=== PATIENT | male | born 1945 | race Caucasian/White ===

== ENCOUNTER → 2019-05-04 14:31 | Outpatient (BNVA) | payer MEDICARE, SELFPAY | PROVIDERS: Family Provider Nurse Practitioner; PCP Nurse Practitioner; Visit Provider Family Medicine | DX: J18.9 Pneumonia, unspecified organism (principal) | CPT/HCPCS: 71046 ==

== ENCOUNTER 2023-06-08 10:22 | Outpatient (CLI) | payer MEDICARE, SELFPAY ==
--- NOTE | 2023-06-08 10:35 | XRR_ITS ---
PROCEDURE INFORMATION: Exam: XR Chest Exam date and time: 06/08/2023 10:42 AM Age: 77 years old Clinical indication: Cough; Additional info: Uveitis, right TECHNIQUE: Imaging protocol: Radiologic exam of the chest. Views: 2 views. COMPARISON: CR XR chest 2V* [id number] 05/04/2019 2:35 PM FINDINGS: Lungs: Unremarkable. No consolidation. Pleural spaces: Unremarkable. No pleural effusion. No pneumothorax. Heart/Mediastinum: Unremarkable. No cardiomegaly. Bones/joints: Unremarkable. XR/XR chest 2V* [id number] IMPRESSION: No acute findings.
[2023-06-08 11:03] LABS: Basophils # 0.1 10^3/uL (0.0-0.1); Basophils % 0.7 %; Eosinophils # 0.1 10^3/uL (0.0-0.8); Eosinophils % 1.6 %; Hematocrit 40.7 % (37-53); Lymphocytes # 2.5 10^3/uL (0.8-4.8); Lymphocytes % 32.4 %; Mean Corpuscular HGB Conc 34.6 g/dL (30-55); Mean Corpuscular Hemoglobin 34.3 pg (27-33); Mean Platelet Volume 9.2 fL (7.4-10.4); Monocytes # 0.7 10^3/uL (0.2-0.9); Monocytes % 8.7 %; Neutrophils # 4.34 10^3/uL (1.8-7.7); Neutrophils % 56.3 %; Nucleated Red Blood Cells % 0 %; Platelet Count 159 10^3/cmm (157-399); Red Blood Count 4.11 10^6/uL (3.85-5.65); Red Cell Distribution Width 12.6 % (12.1-15.1); White Blood Count 7.69 10^3/uL (3.29-11.43)
[2023-06-08 11:05] LABS: Erythrocyte Sedimentation Rate 5 mm/hr (0-10)
[2023-06-08 11:32] LABS: Rapid Plasma Reagin Syphilis Nonreactive (Nonreactive)
[2023-06-09 11:59] LABS: Angiotensin Converting Enzyme 14 U/L (9-67)
[2023-06-09 14:10] LABS: Lymes IGG WB <0.90 index
[2023-06-11 11:39] LABS: Quantiferon Mitogen >10.00 IU/mL; Quantiferon Nil 0.04 IU/mL; Quantiferon Plus TB1 <0.00 IU/mL; Quantiferon TB Gold NEGATIVE (NEGATIVE)
[2023-06-12 22:44] LABS: Treponema pallidum Ab NON-REACTIVE
== END 2023-06-08 10:23 | disposition home or self-care (01) ==
LOC: LAB 10:29
PROVIDERS: PCP Nurse Practitioner; Visit Provider Ophthalmology
DX: H20.9 Unspecified iridocyclitis (principal)
CPT/HCPCS: 36415; 71046; 82164; 85025; 85651; 86140; 86480; 86592; 86617; 86780

== ENCOUNTER 2023-09-09 10:10 | Outpatient (CLI) | payer MEDICARE, SELFPAY ==
[2023-09-14 21:39] LABS: Bartonella Henselae IgG AB NEGATIVE; Bartonella Henselae IgM AB NEGATIVE; Bartonella Quintana IgG AB NEGATIVE
[2023-09-30 10:05] LABS: Bartonella Quintana IgM AB NEGATIVE
== END 2023-09-09 10:11 | disposition home or self-care (01) ==
LOC: LAB 10:32
PROVIDERS: PCP Nurse Practitioner; Visit Provider Ophthalmology
DX: H20.9 Unspecified iridocyclitis (principal)
CPT/HCPCS: 36415; 86611

== ENCOUNTER 2023-10-07 11:29 | Outpatient (CLI) | payer MEDICARE, SELFPAY ==
--- NOTE | 2023-10-07 11:36 | MR_ITS ---
WS: [id number] MRI HEAD AND ORBITS WITH CONTRAST TECHNIQUE: Noncontrast axial T1, axial T2 FSE fat sat, coronal T2 fat sat, coronal T1, coronal T1 fat sat, sagittal T2 fat sat, plus contrast enhanced coronal, sagittal, and axial T1 fat sat images obta ined. Post gadolinium images obtained of the orbits with fat saturation technique. High-resolution or bital imaging. CLINICAL INFORMATION: ?PVRL COMPARISON: None. FINDINGS: No evidence of restricted diffusion to suggest acute ischemia. Ventricular system and basal cistern s are patent. Mild small vessel changes. Moderate parenchymal volume loss. Normal posterior fossa. No rmal vascular flow voids at the skull base. Small basilar artery flow void. Mild mucosal thickening t he paranasal sinuses. Mastoid air cells are well aerated. Normal posterior nasopharynx. Normal optic chiasm and pituitary infundibulum. Mild symmetric atrophy temporal lobes and hippocampal formations Proximal 7th and 8th cranial nerves are normal in appearance. Normal trigeminal nerve root entry zone s. No abnormal intracranial enhancement. Normal visualized dural venous sinuses. No evidence of optic ne rve edema or optic neuritis. Prechiasmatic optic nerves are normal in appearance. Normal intraconal f at. Normal visualized rectus muscles. Globes are normal in appearance. No other suspicious findings. MR/MR orbit face neck wo/w* [id number] IMPRESSION: 1. No evidence of restricted diffusion to suggest acute ischemia. 2. Mild small vessel changes with moderate parenchymal volume loss. 3. No suspicious enhancing intracranial lesions. No edema or mass effect. 4. Normal optic chiasma chiasm and pituitary infundibulum. Optic nerves are no rmal in appearance. No evidence of optic neuritis or edema. 5. Normal intraconal fat. 6. Rectus muscles and globes are normal in appearance. 7. No other acute findings
[2023-10-07] MEDS: gadobenate dimeglumine 20 mL vial IV (13:46)
== END 2023-10-07 11:30 | disposition home or self-care (01) ==
LOC: RAD 11:29
PROVIDERS: PCP Nurse Practitioner; Visit Provider Ophthalmology
DX: H20.9 Unspecified iridocyclitis (principal); J34.89 Other specified disorders of nose and nasal sinuses; G31.89 Other specified degenerative diseases of nervous system; G93.89 Other specified disorders of brain
CPT/HCPCS: 70543; A9577

== ENCOUNTER 2023-12-30 10:34 | Outpatient (CLI) | payer MEDICARE, SELFPAY ==
[2023-12-30 11:28] LABS: Chol HDL Ratio 4.18 mg/dL (1.0-5.00); Cholesterol 209 mg/dL (0-200); HDL Cholesterol 50 mg/dL (60-100); LDL Cholesterol Calculated 134 mg/dL (50-129); LDL HDL Ratio 2.68 RATIO (0.00-3.22); Triglycerides 124 mg/dL (0-150)
== END 2023-12-30 10:35 | disposition home or self-care (01) ==
LOC: LAB 10:40
PROVIDERS: PCP Nurse Practitioner; Visit Provider Internal Medicine
DX: E78.2 Mixed hyperlipidemia (principal)
CPT/HCPCS: 36415; 80061

== ENCOUNTER 2025-01-26 07:53 | Outpatient (CLI) | payer MEDICARE, SELFPAY ==
--- NOTE | 2025-01-26 08:04 | CT_ITS ---
WS: [id number] CTA HEAD AND NECK TECHNIQUE: Contrast enhanced CTA of the head and neck with coronal and sagittal reformatted images and maximum intensity projection (MIP) images. NASCET criteria utilized. CLINICAL INFORMATION: KAREN CAROTID ARTERY STENOSIS COMPARISON: None. DLP: 1386.[address] scans at [facility] use at least one of these dose optimization techniques: automated exposure control; mA and/or kV adjustment per patient size (includes targeted exams where dose is matched to clinical indication); or iterative reconstruction. FINDINGS: No evidence intracranial hemorrhage or mass effect. Ventricular system and basal cisterns are patent. Mild small vessel changes. Moderate parenchymal volume loss. Vascular calcification. Tiny chronic lacunar infarct RIGHT caudate. Mild mucosal thickening in the paranasal sinuses. Mastoid air cells are well aerated. RIGHT: Moderate calcified atheromatous plaque RIGHT carotid bulb extending into the ICA. Significant RIGHT proximal ICA stenosis measuring 70 to 80% with a tiny residual lumen. Stenosis approximately 1.5 cm distal to the bifurcation. RIGHT ICA remains patent to the skull base. LEFT: Prior LEFT CEA. No recurrent LEFT ICA stenosis. INTRACRANIAL CTA: LEFT dominant vertebral artery. Tiny but patent RIGHT vertebral artery. RIGHT vertebral artery ends in PICA. Small basilar artery with anterior dominant circulation. Normal vascularity to the PIPE JEEPER territory bilaterally. Persistent RIGHT PIPE JEEPER. Patent LEFT posterior communicating artery. Both ICAs are patent at the skull base. Cavernous carotid calcification. Absent RIGHT A1 segment. Patent anterior communicating artery. Normal vascularity to the AHMET territory. Normal vascularity to the MCA territories bilaterally. No evidence of proximal flow-limiting stenosis. CT/CT angio headneck* [id number] IMPRESSION: 1. RIGHT ICA stenosis 70 to 80% approximately 1.5 cm distal to the bifurcation . Recommend vascular surgery consultation. 2. Prior LEFT CEA. No recurrent stenosis. 3. LEFT dominant vertebral artery. 4. Anterior dominant circulation. 5. No proximal flow-limiting intracranial stenosis.
[2025-01-26 08:24] LABS: Blood Urea Nitrogen 10 mg/dL (8-23)
[2025-01-26] MEDS: iohexol 350 mg/mL 500 mL Btl (per mL) IV (08:38)
== END 2025-01-26 07:54 | disposition home or self-care (01) ==
LOC: RAD 07:56
PROVIDERS: PCP Internal Medicine; Visit Provider Surgery Vascular Surgery
DX: I65.23 Occlusion and stenosis of bilateral carotid arteries (principal)
CPT/HCPCS: 70496; 70498; 82565; 84520